=== PATIENT | female | born 1950 | race Hispanic/Latino ===

== ENCOUNTER → 2018-06-25 | Day surgery (SDC) | payer MEDICARE ==
[~2018-06-25] MED LIST: ALPRAZOLAM0.5 MG PO; AMLODIPINE BESYL5 MG PO; ASPIR 8181 MG PO; CALCIUM 500+D1 EACH PO; FENTANYL CITRATE/PF 100MCG/2 ML INJ ONE; FERROUS SULFAT325 MG PO; LOSARTAN-HCTZ1 EACH PO; METFORMIN HCL500 MG PO; MIDAZOLAM HCL 2 MG/2 ML VIAL ONE; MIDAZOLAM HCL 5MG/ML 2ML VIAL ONE; OR PHACO EYE KIT ONE; POVIDONE IODINE 5% (OPTH) 30 ML BTL ONE; SENIOR VITAMIN PO; SOMA350 MG PO; VITAMIN B COMP1 EACH PO
[2018-06-25 16:05] VITALS: BP 108/62
== END | disposition home or self-care (01) ==
LOC: OR 12:34
PROVIDERS: ATTEND Ophthalmology
DX: H25.12 Age-related nuclear cataract, left eye (principal); E78.5 Hyperlipidemia, unspecified; D64.9 Anemia, unspecified; E11.22 Type 2 diabetes mellitus with diabetic chronic kidney disease; I12.9 Hypertensive chronic kidney disease with stage 1 through stage 4 chronic kidney disease, or unspecified chronic kidney disease; N18.9 Chronic kidney disease, unspecified; Z79.82 Long term (current) use of aspirin; Z79.84 Long term (current) use of oral hypoglycemic drugs
CPT/HCPCS: 66984; J2250 ×2; V2632

== ENCOUNTER → 2018-07-23 | Day surgery (SDC) | payer MEDICARE ==
[~2018-07-23] MED LIST changes: -MIDAZOLAM HCL 5MG/ML 2ML VIAL ONE; -POVIDONE IODINE 5% (OPTH) 30 ML BTL ONE; +PREOP PHACO EYE KIT ONE
[2018-07-23 12:55] VITALS: BP 118/53
== END | disposition home or self-care (01) ==
LOC: OR 09:49
PROVIDERS: ATTEND Ophthalmology
DX: H25.11 Age-related nuclear cataract, right eye (principal); I10 Essential (primary) hypertension; E11.9 Type 2 diabetes mellitus without complications; Z79.84 Long term (current) use of oral hypoglycemic drugs; Z79.82 Long term (current) use of aspirin
CPT/HCPCS: 36415; 82948; J2250; V2632

== ENCOUNTER 2018-12-28 08:56 | Emergency (ER) | payer MEDICARE ==
[~2018-12-28] VITALS: Ht 160 cm; Wt 72.6 kg
[~2018-12-28 08:56] MED LIST changes: -FENTANYL CITRATE/PF 100MCG/2 ML INJ ONE; -MIDAZOLAM HCL 2 MG/2 ML VIAL ONE; -OR PHACO EYE KIT ONE; -PREOP PHACO EYE KIT ONE
--- OUTSIDE RECORDS SUMMARY | 2018-12-28 08:59 | XMS REPORT ---
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 Allergies, Adverse Reactions, Alerts This patient has no known allergies or adverse reactions. Medications This patient has no known medications. Results Test Description Test Time Test Comments Text Results Atomic Results Result Comments BREAST ULTRASOUND RIGHT 2018-09-30 15:47:51 - DIAG MAMM RIGHT NEIL CAD DIGITALUNILATERAL RIGHT DIGITAL DIAGNOSTIC MAMMOGRAM 3D/2D WITH CAD: 09/30/2018CLINICAL: Abnormal Mammogram. Digital breast tomosynthesis was performed in addition to routine CC and MLO views. Current mammographic images were evaluated by either a Qwilr M- Vu or a [employer] ImageChecker CAD (computer aided detection system). Comparison is made to exams dated 09/09/2018 mammogram, 12/19/2016 mammogram - [facility]-, and 05/01/2012 mammogram - [facility]. There are scattered fibroglandular tissues in the right breast. A 7 mm oval circumscribed low-density mass in the right lower outer quadrant persist on spot compression views, this is stable since 2012 mammogram when accounting for differences in technique. No suspicious mass, architectural distortion, malignant type calcification, or lymph node abnormality detected. INCOMPLETE ASSESSMENT: ADDITIONAL IMAGING EVALUATION RECOMMENDEDStable oval circumscribed mass in the right lower outer quadrant since 2012. Targeted and survey right breast ultrasound to follow.- BREAST ULTRASOUND RIGHTULTRASOUND OF RIGHT BREAST: 09/30/2018Comparison is made to exams dated 09/09/2018 mammogram, 12/19/2016 mamm ogram - [facility]-, and 05/01/2012 mammogram - [facility]. Color flow and real-time ultrasound of the right breast were performed. Redman scale images of the real-time examination were reviewed. The breast tissue has scattered fibroglandular background echotexture. Targeted right breast ultrasound demonstrates cluster of microcysts in the right breast at 7 o'clock, 5 cm from nipple, measuring up to 6 mm correlating with the mammographic mass, benign. The rest of the survey ultrasound is negative, benign subareolar dilated ducts. No suspicious sonographic normality. No axillary lymphadenopathy was seen.IMPRESSION: BENIGN There is no sonographic evidence of malignancy. Resume annual screening mammography in one year. Jose Manuel Muñoz M.D. ss/:09/30/2018 15:47:51 Entry: - 10/03/2018 09:24:40Imaging Technologist: Joselyn BANKS, [facility]- letter sent: BIRADS 1-2 Combo FU Letter Mammogram BI-RADS: 0 Indeterminate Ultrasound BI-RADS: 2 Benign DIAG MAMM RIGHT NEIL CAD DIGITAL 2018-09-30 15:47:51 - DIAG MAMM RIGHT NEIL CAD DIGITALUNILATERAL RIGHT DIGITAL DIAGNOSTIC MAMMOGRAM 3D/2D WITH CAD: 09/30/2018CLINICAL: Abnormal Mammogram. Digital breast tomosynthesis was performed in addition to routine CC and MLO views. Current mammographic images were evaluated by either a Qwilr M-Vu or a [employer] ImageUniQurecker CAD (computer aided detection system). Comparison is made to exams dated 09/09/2018 mammogram, [facility], and 05/01/2012 mammogram - [facility]. There are scattered fibroglandular tissues in the right breast. A 7 mm oval circumscribed low-density mass in the right lower outer quadrant persist on spot compression views, this is stable since 2012 mammogram when accounting for differences in technique. No suspicious mass, architectural distortion, malignant type calcification, or lymph node abnormality detected. INCOMPLETE ASSESSMENT: ADDITIONAL IMAGING EVALUATION RECOMMENDEDStable oval circumscribed mass in the right lower outer quadrant since 2012. Targeted and survey right breast ultrasound to follow.- BREAST ULTRASOUND RIGHTULTRASOUND OF RIGHT BREAST: 09/30/2018Comparison is made to exams dated 09/09/2018 mammogram, [facility], and 05/01/2012 mammogram - [facility]. Color flow and real-time ultrasound of the right breast were performed. Redman scale images of the real- time examination were reviewed. The breast tissue has scattered fibroglandular background echotexture. Targeted right breast ultrasound demonstrates cluster of microcysts in the right breast at 7 o'clock, 5 cm from nipple, measuring up to 6 mm correlating with the mammographic mass, benign. The rest of the survey ultrasound is negative, benign subareolar dilated ducts. No suspicious sonographic normality. No axillary lymphadenopathy was seen.IMPRESSION: BENIGN There is no sonographic evidence of malignancy. Resume annual screening mammography in one year. Jose Manuel Muñoz M.D. ss/:09/30/2018 15:47:51 Entry: - 10/03/2018 09:24:40Imaging Technologist: Joselyn Baltazar , [facility]-FWletter sent: BIRADS 1-2 Combo FU Letter Mammogram BI-RADS: 0 Indeterminate Ultrasound BI-RADS: 2 Benign SCR MAMM BILATERAL NEIL CAD DIGITAL 2018-09-12 15:45:22 - SCR MAMM BILATERAL NEIL CAD DIGITALBILATERAL DIGITAL SCREENING MAMMOGRAM 3D/2D WITH CAD: 09/09/2018CLINICAL: Asymptomatic. Digital breast tomosynthesis was performed in addition to routine CC and MLO views. Current mammographic images were evaluated by either a Qwilr M-Vu or a [employer] ImageChecker CAD (computer aided detection system). Comparison is made to exams dated 12/19/2016 mammogram - [facility]-, 05/01/2012 mammogram - [facility], and 12/13/2006 mammogram - [facility]-. There are scattered fibroglandular tissues in both breasts. There is a 7 mm focal asymmetry in the right breast at 7 o'clock, middle depth, 6 cm from the nipple. No other significant masses, calcifications, or other findings are seen in either breast. IMPRESSION: INCOMPLETE ASSESSMENT: ADDITIONAL IMAGING EVALUATION RECOMMENDEDThe 7 mm focal asymmetry in the right breast is indeterminate. Spot compression view as well as a possible ultrasound are recommended. Silvia Benites M.D. ar/:09/12/2018 15:45:22 Pusher Operator: Gracie BANKS, [facility]-FWletter sent: Additional Imaging Mammogram BI-RADS: 0 Indeterminate
--- NOTE | 2018-12-28 09:05 | NUR ---
PATIENT TO ROOM 3 AT THIS TIME; PATIENT REQUESTING THAT THE FAMILY REMIAN IN THE WAITING ROOM UNTIL AFTER EKG AND IV ARE COMPLETED. PATIENT TO ROOM, PLACED IN GOWN, EKG OBTAINED, 20G IV STARTED GINO RIGHT AC, BLOOD DRAWN AND LABELED BEDSIDE AND THEN TAKEN TO LAB. PATIENT PLACED ON ADJUNCT SOCIOLOGY PROFESSOR, PROVIDED WITH WARM BLANKET AND SOCK.
--- NOTE | 2018-12-28 09:20 | NUR ---
FAMILY BROUGHT TO PATIENT ROOM AT THIS TIME PER PATIENTS REQUEST. PATIENT AND FAMILY UPDATED ON PLAN OF CARE AND ALL QUESTIONS ANSWERED.
[2018-12-28 09:29] LABS: BASOPHILS % 0.4 % (0.0-1.0); EOSINOPHILS # (AUTO) 0.5 (0.0-0.4); EOSINOPHILS % 10.2 % (0.0-6.0); HEMATOCRIT 32.2 % (34.2-44.1); HEMOGLOBIN 10.6 g/dL (12.0-16.0); LYMPHOCYTES # (AUTO) 0.9 (1.0-3.2); LYMPHOCYTES % 20.1 % (18.0-39.1); MEAN CORPUSCULAR HEMOGLOBIN 27.1 pg (28-32); MEAN CORPUSCULAR HGB CONC 32.9 g/dL (31-35); MEAN CORPUSCULAR VOLUME 82.4 fL (81-99); MONOCYTES # (AUTO) 0.3 (0.2-0.8); MONOCYTES % 6.9 % (4.4-11.3); NEUTROPHILS # (AUTO) 2.9 (2.1-6.9); NEUTROPHILS % 62.2 % (38.7-80.0); PLATELET COUNT 371 x10e3/uL (140-360); RED BLOOD COUNT 3.91 x10e6/uL (3.6-5.1); RED CELL DISTRIBUTION WIDTH 12.4 % (11.7-14.4)
[2018-12-28 09:42] LABS: ALANINE AMINOTRANSFERASE 11 IU/L (0-55); ALBUMIN 3.9 g/dL (3.5-5.0); ALBUMIN/GLOBULIN RATIO 1.2 (0.8-2.0); ALKALINE PHOSPHATASE 52 IU/L (40-150); ANION GAP 16.4 mmol/L (8-16); CALCIUM 9.9 mg/dL (8.4-10.2); CARBON DIOXIDE 28 mmol/L (22-29); CHLORIDE 93 mmol/L (98-107); CREATINE KINASE 51 IU/L (29-168); CREATININE, SERUM 0.74 mg/dL (0.57-1.11); EST GLOMERULAR FILTRATION RATE > 60 ML/MIN (60-); GLUCOSE 118 mg/dL (74-118); POTASSIUM 3.4 mmol/L (3.5-5.1); SODIUM 134 mmol/L (136-145)
[2018-12-28] MEDS ORDERED: LIDOCAINE 5% PATCH TP STA (10:05)
[2018-12-28] MEDS ORDERED: MOTRIN200 MG PO (10:09)
[2018-12-28] MEDS ORDERED: ROBAXIN-750750 MG PO (10:09)
[2018-12-28] MEDS ORDERED: LORAZEPAM INJ 2 MG/ML VIAL IV ONE (10:15)
[2018-12-28 10:18] LABS: BLOOD UREA NITROGEN 8 mg/dL (7-26); BUN/CREATININE RATIO 11 (6-25)
--- NOTE | 2018-12-28 10:30 | NUR ---
PATIENT RESTING QUIETLY AT THIS TIME - FAMILY AT BEDSIDE. PATIENT WITH MINIMAL ANSWERS TO QUESTIONS, REQUIRING PROMPTING TO GET HER TO ANSWER DIRECT QUESTIONS. WHEN ASKED, PATIENT STATES THAT SHE IS JUST WORRIED. PATIENT MEDICATED FOR ANXIETY AT THIS TIME
--- NOTE | 2018-12-28 10:43 | Diagnostic Imaging Report ---
EXAMINATION: CHEST 2 VIEWS INDICATION: ^CP ^[id number] ^[id number] COMPARISON: None FINDINGS: PA and lateral views TUBES and LINES: None. LUNGS: Lungs are well inflated. Ill-defined bandlike opacity with peribronchial wall thickening in the lingula. No pulmonary edema. PLEURA: No pleural effusion or pneumothorax. HEART AND MEDIASTINUM: The cardiomediastinal silhouette is unremarkable. BONES AND SOFT TISSUES: No acute osseous lesion. Soft tissues are unremarkable. UPPER ABDOMEN: No free air under the diaphragm. IMPRESSION: Radiographic findings in the lingula are concerning for atypical infection. Recommend follow-up in 4-6 weeks. Signed by: Dr. Negra Henry M.D. on 12/28/2018 10:40 AM
--- NOTE | 2018-12-28 11:38 | NUR ---
PATIENT APPEARS IN NO DISTRESS, PATIENT STILL WEARING SUNGLASSES AND MAKES MINIMAL EYE CONTACT AND ANSWERS ONLY DIRECT QUESTIONS
== END 2018-12-28 12:30 | disposition home or self-care (01) ==
LOC: ER 08:56
DX: R07.89 Other chest pain (principal)
CPT/HCPCS: 36415; 71046; 80053; 82550; 82553; 84484; 85025; 93005; 99284; J2060

== ENCOUNTER → 2020-12-02 | Outpatient (CLI) | payer MEDICARE ==
[~2020-12-02] MED LIST changes: +MOTRIN200 MG PO; +ROBAXIN-750750 MG PO
== END ==
LOC: RAD 15:14
PROVIDERS: ATTEND Anesthesiology Pain Medicine

== ENCOUNTER → 2023-06-05 | Outpatient (REF) | payer MEDICARE ==
[~2023-06-05] MED LIST changes: +DIATRIZOATE MEGL/DIATRIZOA SOD 30 ML BTL PO ONE; +IOPAMIDOL 370 MG/ML 100 ML INFUS..BTL INJ ONE
[2023-06-05 15:51] LABS: CREATININE, SERUM 0.95 mg/dL (0.57-1.11)
== END ==
LOC: CT 14:51
PROVIDERS: ATTEND Internal Medicine Gastroenterology
DX: D12.6 Benign neoplasm of colon, unspecified (principal); K22.70 Barrett's esophagus without dysplasia; K20.91 Esophagitis, unspecified with bleeding; K44.9 Diaphragmatic hernia without obstruction or gangrene; B96.81 Helicobacter pylori [H. pylori] as the cause of diseases classified elsewhere; K59.00 Constipation, unspecified
CPT/HCPCS: 36415; 74177; 82565; 84520; Q9963; Q9967